=== PATIENT | female | born 1960 | race Caucasian/White ===

== ENCOUNTER 2017-01-03 01:20 | Emergency (ER) | payer OTHER ==
[2017-01-03 01:45] VITALS: BP 134/92
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
== END 2017-01-03 01:54 | disposition home or self-care (01) ==
LOC: JP.ED 01:20
DX: S01.81XA Laceration without foreign body of other part of head, initial encounter (principal); F10.129 Alcohol abuse with intoxication, unspecified; W19.XXXA Unspecified fall, initial encounter
CPT/HCPCS: 12011; 99283-25

== ENCOUNTER 2017-01-04 12:49 | Emergency (ER) | payer OTHER ==
[2017-01-04 13:06] VITALS: BP 144/91
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
== END 2017-01-04 13:40 | disposition home or self-care (01) ==
LOC: JP.ED 12:49
DX: S00.33XA Contusion of nose, initial encounter (principal); S00.12XA Contusion of left eyelid and periocular area, initial encounter; S00.11XA Contusion of right eyelid and periocular area, initial encounter; Z13.89 Encounter for screening for other disorder; Z88.1 Allergy status to other antibiotic agents; Z98.890 Other specified postprocedural states; X58.XXXA Exposure to other specified factors, initial encounter
CPT/HCPCS: 36415; 80305; 99284